=== PATIENT | female | born 1980 | race Caucasian/White ===

== ENCOUNTER 2023-06-10 16:29 | Emergency (ER) | payer OTHER, SELFPAY ==
[2023-06-10 16:30] VITALS: BP 149/55
--- NOTE | 2023-06-10 16:49 | EDRN ---
Anton SORIA in room w/ pt at this time.
--- NOTE | 2023-06-10 16:58 | ED.GENMED ---
History of Present Illness
<Catina Cunningham PA-C - Last Filed: 06/10/23 23:52>
General
Chief Complaint: Back Pain
Source: patient
Exam Limitations: none
Time Seen by Provider: 06/10/23 16:33
Nursing documentation reviewed up to this point in time: agreed with
Travel History
Have you had any contact with someone who has COVID-19?: No
Do you have any symptoms of coronavirus? Fever > 100 degrees, chills, cough, shortness of breath, sore throat, loss of taste or smell, muscle aches, or headache?: No
History of Present Illness
History of Present Illness:
Patient is a 42-year-old female with no significant past medical history presenting for evaluation of acute onset lower back pain. Patient states pain initially began on Tuesday morning and has been worsening. Pain is located in lower back, more
so on the right side with radiation down into the right leg. Pain is constant 10/10 both at rest and with movement. Patient reports feeling generally unwell on Tuesday with a low-grade fever and nausea. Her menstrual period began on Tuesday
morning which is what she initially attributed the lower back pain to. She also endorses lower abdominal pain which she attributes to menstrual cramps. She has been nauseous since pain started on Tuesday with very little appetite. Patient denies
any bowel or bladder incontinence, numbness/tingling in lower extremities. Patient denies any dysuria. Patient does have a somewhat significant history of sciatica type pain, but she describes this pain as much more severe
Patient has tried heating pad and Tylenol with very little improvement.
Patient denies any inciting injury or trauma. Patient does have a history of kidney infections and kidney stones in the past.
Of note�patient did recently stop taking an OCP about 3 months ago due to side effects. She has had her tubes tied many years ago. No history of other abdominal surgeries. No history of IV drug use.
Past History
<Catina Cunningham PA-C - Last Filed: 06/10/23 23:52>
Past History
ED Past Medical History: None
ED Past Surgical History: None
Social History
Tobacco: Non-smoker
Alcohol: None
Phy Exam
<Catina Cunningham PA-C - Last Filed: 06/10/23 23:52>
Physical Exam
Physical Exam:
General: Appears uncomfortable, nontoxic
Vitals: Vital signs stable, afebrile
HEENT: Atraumatic, normocephalic; pupils equal round and reactive to light bilaterally, protecting airway
Neck: appears supple, no meningeal signs, no cervical spine tenderness
CV: Regular rate and rhythm, heart sounds normal, no evidence of cyanosis
Resp: No evidence of respiratory distress, lungs clear bilaterally
Abd: Soft, diffusely tender in the lower abdomen without rebound or guarding, non-distended
Extremities: No deformities, no evidence of cyanosis or edema; DP pulses palpable and equal bilaterally; strength 5 out of 5 in upper and lower extremity
Back: Significant reproducible tenderness to right lumbar paraspinal muscles with associated muscle spasm; no midline spinal tenderness, no rash
Neuro: alert and oriented; grossly intact, sensation fully intact, no focal neurologic deficits
Psych: Normal affect
Skin: Intact, no rashes
Course
<Catina Cunningham PA-C - Last Filed: 06/10/23 23:52>
Orders/Labs/Results
Orders:
Orders
06/10/23 17:27
Ketorolac [Toradol] 15 mg IV NOW STA
Morphine Sulfate 2 mg IV NOW STA
06/10/23 17:28
Test Result ONCE
06/10/23 17:46
Complete Blood Count/With Diff Urgent
Comprehensive Metabolic Panel Urgent
HCG, Serum Qualitative Screen Urgent
06/10/23 17:59
Urinalysis Reflex To Culture Urgent
Date Specimen was Collected: 06/10/23
Time Specimen was Collected: 17:58
Urine Microscopic Reflex Cult Urgent
Urine Culture Urgent
TOM Source: U
Specimen Description:
Date Specimen was Collected: 06/10/23
Time Specimen was Collected: 17:58
06/10/23 19:05
0.9% Sodium Chloride 1000 ml [Nss] 1,000 ml IV BOLUS
06/10/23 19:06
CT Abd/pelvis W Iv Cont Urgent
Comment:
Reason For Exam: Diffuse abdominal pain, lower back pain
06/10/23 20:23
Morphine Sulfate 2 mg IV NOW STA
06/10/23 20:30
Dexamethasone Sod Phosphate [Decadron] 10 mg IV NOW STA
diazePAM [Valium Injection] 2 mg IV NOW STA
Abnormal Lab Results
06/10/23 06/10/23
17:46 17:59
MCH 31.9 H pg
(27.0-31.0)
Urine Ketones Trace A
(Negative)
Ur Occult Blood Reflex 3+ A
(Negative)
Leukocyte Esterase Rfl 1+ A
(Negative)
Urine RBC 3-6 A /HPF
(0-2)
Urine Bacteria (Reflex) Many A
(Negative)
06/10/23 17:46
06/10/23 17:46
Vital Signs
Initial and Last Documented VS:
Initial Vital Signs
Temp Pulse Resp BP Pulse Ox
98.4 F 84 16 149/55 98
06/10/23 16:30 06/10/23 16:30 06/10/23 16:30 06/10/23 16:30 06/10/23 16:30
Last Documented Vital Signs
Temp Pulse Resp BP Pulse Ox
98.4 F 75 16 97/66 100
06/10/23 16:30 06/10/23 18:31 06/10/23 18:31 06/10/23 18:31 06/10/23 18:31
<Jay Hewitt MD - Last Filed: 06/10/23 20:51>
Orders/Labs/Results
Orders:
Orders
06/10/23 17:27
Ketorolac [Toradol] 15 mg IV NOW STA
Morphine Sulfate 2 mg IV NOW STA
06/10/23 17:28
Test Result ONCE
06/10/23 17:46
Complete Blood Count/With Diff Urgent
Comprehensive Metabolic Panel Urgent
HCG, Serum Qualitative Screen Urgent
06/10/23 17:59
Urinalysis Reflex To Culture Urgent
Date Specimen was Collected: 06/10/23
Time Specimen was Collected: 17:58
Urine Microscopic Reflex Cult Urgent
Urine Culture Urgent
TOM Source: U
Specimen Description:
Date Specimen was Collected: 06/10/23
Time Specimen was Collected: 17:58
06/10/23 19:05
0.9% Sodium Chloride 1000 ml [Nss] 1,000 ml IV BOLUS
06/10/23 19:06
CT Abd/pelvis W Iv Cont Urgent
Comment:
Reason For Exam: Diffuse abdominal pain, lower back pain
06/10/23 20:23
Morphine Sulfate 2 mg IV NOW STA
06/10/23 20:30
Dexamethasone Sod Phosphate [Decadron] 10 mg IV NOW STA
diazePAM [Valium Injection] 2 mg IV NOW STA
Abnormal Lab Results
06/10/23 06/10/23
17:46 17:59
MCH 31.9 H pg
(27.0-31.0)
Urine Ketones Trace A
(Negative)
Ur Occult Blood Reflex 3+ A
(Negative)
Leukocyte Esterase Rfl 1+ A
(Negative)
Urine RBC 3-6 A /HPF
(0-2)
Urine Bacteria (Reflex) Many A
(Negative)
06/10/23 17:46
06/10/23 17:46
Vital Signs
Initial and Last Documented VS:
Initial Vital Signs
Temp Pulse Resp BP Pulse Ox
98.4 F 84 16 149/55 98
06/10/23 16:30 06/10/23 16:30 06/10/23 16:30 06/10/23 16:30 06/10/23 16:30
Last Documented Vital Signs
Temp Pulse Resp BP Pulse Ox
98.4 F 75 16 97/66 100
06/10/23 16:30 06/10/23 18:31 06/10/23 18:31 06/10/23 18:31 06/10/23 18:31
<Catina Cunningham PA-C - Last Filed: 06/10/23 23:52>
MDM/Problems Addressed
Differential Diagnosis Includes:
Sciatica, muscle strain/ muscle spasm UTI, kidney stone, pyelonephritis, appendicitis, ovarian cyst, tubo-ovarian abscess, diverticulitis, cholecystitis
MDM/Problems Addressed:
Patient is a 42-year-old female with no significant past medical history presenting for evaluation of severe lower back pain. Pain is been present for the past 3 days, has been constant 10/10 in severity associated with nausea. She did have a
low-grade fever on Tuesday of 100.1. Patient is in significant distress due to pain and unable to complete full physical examination. Will treat pain with 15 mg Toradol, morphine and reassess. Will draw basic labs, urinalysis, check
Pain with very minimal improvement but able to complete physical examination. She does have significant reproducible tenderness in right paraspinal region around L4/L5. No focal neurologic deficits. Strength 5 out of 5 in upper and lower
extremities. She is tender throughout her abdomen, most significant in right lower quadrant. Labs noted. Urinalysis positive for small amount of blood likely attributed affect patient is currently on her menses. Given persistent discomfort�will
check CT abdomen/pelvis. Patient without any focal neurologic deficits, strength and sensation fully intact- not suspicious for cauda equina at this time. Will give 2mg morphine.
CT scan shows findings of constipation and moderate degenerative disc disease at L5/S1. This is likely contributing patient's pain. She still feels very little improvement after morphine. Will give 10 of Decadron and 2 of Valium. Will reassess
Patient is feeling improvement following Valium and Decadron, although still somewhat uncomfortable. She was able to walk to the bathroom. Offered patient admission for pain management. Patient feels comfortable with discharge with close return
precautions. Will discharge with prescription for Medrol Dosepak and Valium and Ortho follow-up. Lengthy discussion with patient regarding warning signs of cauda equina. Patient comfortable with this plan. All questions answered.
Chronic conditions affecting care:
Sciatica
Acute Exacerbation and/or Progression of Chronic Illness:
N/A
<Catina Cunningham PA-C - Last Filed: 06/10/23 23:52>
*Radiology
Radiology exam reviewed: preliminary read by ED provider and radiology read reviewed
*Pulse Oximetry
Patient hypoxic: no
*EKG
Interpreted by ED Provider?: NA
*Plastic Panel Installer Interpretation
Rate: Plastic Panel Installer- N/A
*Critical Care Note
Total Time (30-74mins, 75-104mins- exclusive of procedures): Not Applicable
ED Attending Note
<Catina Cunningham PA-C - Last Filed: 06/10/23 23:52>
-
Portions of this chart may have been created with voice recognition software.� Occasional wrong word or��sound alike� substitutions may have occurred due to the inherent limitations of voice recognition software.
<Jay Hewitt MD - Last Filed: 06/10/23 20:51>
ED Attending Note
Patient seen and examined by attending physician: Yes
ED Attending Note:
Patient with history of chronic pain secondary to sciatica, since childbirth 30 years ago, presents to ED secondary to persistent right lower back pain over the past 3 days. Denies fever or chills. Denies direct trauma. Denies loss of sensation
or weakness. Denies urinary or bowel incontinence. Patient does report pain rating to her groin as well as her upper thigh. Patient has had similar symptoms in the past, but never this severe. Denies recent change in activities.
Physical Exam
General: moderate painful distress, not acutely ill. afebrile.
Head: nc/at. eomi
Neck: supple. no meningeal signs.
Abdomen: normal bowel sounds. not tender.
Back: no midline tenderness. mild focal right lower back tenderness at level of L4-5 with associated muscle spasm.
Neuro: alert and oriented. no focal neurological deficits
Skin: no rash
Psychiatric: well kept. interactive and cooperative
Extremities: no edema. no calf tenderness.
CT report reviewed.
History and exam consistent with likely nerve impingement with associated muscle spasm. Patient will be treated symptomatically and reassess. Patient will benefit from an outpatient orthopedic surgery follow-up, including potential MRI spine as an
outpatient, if symptoms persist. Patient does not have exam findings concerning for cauda equina syndrome at this time.
Discharge Plan
Departure
Patient Disposition: Home (Routine Discharge)
Date of Disposition: 06/10/23
Time of Disposition: 21:32
Patient with high blood pressure during this ER visit?: No
Condition: Good
Covid-19: Not Applicable
Discharge Problem:
Low back pain
Instructions: Low Back Pain (DC), Sciatica (DC)
Prescriptions:
New
methylprednisolone [Medrol (Laci)] 4 mg tablets,dose pack
See Rx Instructions .ROUTE .COMPLEX Qty: 21 0RF
Rx Instructions:
orally per package directions
diazepam 2 mg tablet
2 mg PO Q8H PRN (Reason: muscle spasm) Qty: 7 0RF
No Action
bupropion HCl [Wellbutrin SR] 150 MG tablet sustained-release 12 hr
150 mg PO DAILY
lamotrigine 25 MG tablet, chewable dispersible
25 mg PO DAILY
oxycodone-acetaminophen 5 MG/325 MG tablet
1 tab PO Q6HPRN PRN (Reason: pain) Qty: 7 0RF
Referrals:
Gabriel Floyd MD [Active] - Call in 1-3 days for appt
UNKNOWN - PT NOT,INTERVIEWE [Unknown Provider] -
Activity Restrictions/Additional Instructions:
-Return to the emergency department with any high fevers, numbness/tingling in groin/lower extremities, weakness, bowel/bladder incontinence, intractable pain, chest pain, shortness of breath, worsening current symptoms, or any other concern
-Prescriptions have been sent to your pharmacy. You can take the diazepam every 8 hours as needed for severe pain/muscle spasm. This will cause drowsiness. Do not take prior to driving. You can start the steroid Dosepak tomorrow.
-You should take Motrin twice a day. Apply ice/heat as needed
-Follow-up with orthopedic for further evaluation/management. You may require further imaging and intervention
Interventions
Interventions:
*Risk Screen - Suicide Last Done: 06/10/23 16:30
*General Assessment Last Done: 06/10/23 16:30
*Neglect/Abuse Screening Last Done: 06/10/23 16:30
ED- Fall Risk Assessment Last Done: 06/10/23 18:31
*ED COVID-19 Vaccine History Last Done: 06/10/23 18:31
*Nursing Disposition Last Done: 06/10/23 22:14
ED-Musculoskeletal Assessment Last Done: 06/10/23 18:31
Discharge Date and Time
Discharge Date/Time: 06/10/23 22:14
Print Language: LITHUANIAN
[2023-06-10] MEDS: TORADOL 15 MG IV (17:53)
[2023-06-10 17:54] LABS: % Basophils 0.8 % (0-2); % Eosinophils 3.8 % (0-6); % Immature Granulocytes 0.3 % (0-0.5); % Monocytes 6.5 % (1.7-9.3); % Neutrophils 56.6 % (42.2-75.2); Absolute Basophils 0.1 10^3/uL (0-0.2); Absolute Eosinophils 0.3 10^3/uL (0-0.7); Absolute Lymphocytes 2.5 10^3/uL (1.2-3.4); Absolute Monocytes 0.5 10^3/uL (0.1-0.6); Absolute Neutrophils 4.4 10^3/uL (1.4-6.5); Hemoglobin 14.4 g/dL (12.0-16.0); Mean Corp Hgb Conc. 35.1 g/dL (33.0-37.0); Mean Corpuscular Hgb 31.9 pg (27.0-31.0); Mean Corpuscular Volume 90.9 fL (81.0-99.0); Mean Platelet Volume 9.7 fL (7.4-10.4); Nucleated Red Blood Cells % 0 %; Platelet Count 298 10^3/uL (130-400); Red Blood Cell Count 4.51 10^6/uL (4.20-5.40); Red Cell Dist. Width 12.8 % (11.5-14.5); White Blood Cell Count 7.8 10^3/uL (4.8-10.8)
[2023-06-10] MEDS: MORPHINE SULFATE 2 MG IV ×2 (17:54→20:28)
[2023-06-10 18:04] LABS: HCG, Serum Qualitative Screen Negative
[2023-06-10 18:07] LABS: ALT (SGPT) 14 U/L (0-35); AST (SGOT) 17 U/L (14-36); Albumin 4.8 g/dl (3.5-5.0); Alkaline Phosphatase 93 U/L (38-126); Blood Urea Nitrogen 12 mg/dl (7-17); Calcium 9.9 mg/dl (8.4-10.2); Carbon Dioxide 23 mmol/L (22-30); Chloride 106 mmol/L (98-107); Glucose 95 mg/dl (70-99); Sodium 135 mmol/L (135-145); Total Bilirubin 0.6 mg/dl (0.2-1.3); Total Protein 7.4 g/dl (6.3-8.2); eGFR > 60.00
[2023-06-10 18:11] LABS: Urine Albumin Negative (Neg - Trace); Urine Bilirubin Negative (Negative); Urine Character Clear (Clear); Urine Color Straw; Urine Glucose Negative (Negative); Urine Ketone Trace (Negative); Urine Leukocyte 1+ (Negative); Urine Nitrite Negative (Negative); Urine Occult Blood 3+ (Negative); Urine Urobilinogen Negative (Neg - 1+); Urine pH 6.5 (5.0-9.0)
[2023-06-10 18:25] LABS: Urine Squamous Cell >30 /LPF (Few)
[2023-06-10 18:26] LABS: Urine Bacteria Many (Negative)
[2023-06-10 18:31] VITALS: BP 97/66; BMI 30.5
[2023-06-10] MEDS: NSS 1000 IV (19:28)
[2023-06-10] MEDS: DECADRON 10 MG IV (20:45)
[2023-06-10] MEDS: VALIUM INJECTION 2 MG IV (20:46)
== END 2023-06-10 22:14 | disposition home or self-care (01) ==
LOC: EMR 16:29
PROVIDERS: Physician Assistant; EMERGENCY PHYSICIAN Emergency Medicine; FAMILY PHYSICIAN Nurse Practitioner Family
DX: M54.41 Lumbago with sciatica, right side (principal); M62.838 Other muscle spasm; M79.604 Pain in right leg; K59.00 Constipation, unspecified; R50.9 Fever, unspecified; R11.0 Nausea; R10.30 Lower abdominal pain, unspecified; G89.29 Other chronic pain; M51.37 Other intervertebral disc degeneration, lumbosacral region; Z87.442 Personal history of urinary calculi; Z88.1 Allergy status to other antibiotic agents; Z88.2 Allergy status to sulfonamides
CPT/HCPCS: 99285; 96375 ×3; 96361; 96374; 96376; 74177; 80053; 81003; 81015; 84703; 85025; 87086; Q9967

== ENCOUNTER → 2023-07-12 10:27 | Outpatient (REF) | payer OTHER, SELFPAY | LOC: WDC 10:27 | PROVIDERS: ATTENDING PHYSICIAN Nurse Practitioner Adult Health | DX: N64.4 Mastodynia (principal) | CPT/HCPCS: 76642 ==

== ENCOUNTER → 2023-07-21 19:50 | Outpatient (REF) | payer OTHER, SELFPAY | LOC: WDC 19:50 | PROVIDERS: ATTENDING PHYSICIAN Obstetrics & Gynecology; FAMILY PHYSICIAN Nurse Practitioner Adult Health | DX: N64.4 Mastodynia (principal) | CPT/HCPCS: 77062; 77066 ==

== ENCOUNTER 2024-02-03 15:59 | Emergency (ER) | payer OTHER, SELFPAY ==
[2024-02-03 16:03] VITALS: BP 123/76
[2024-02-03 16:30] LABS: % Basophils 0.9 % (0-2); % Eosinophils 2.1 % (0-6); % Immature Granulocytes 0.2 % (0-0.5); % Neutrophils 56.8 % (42.2-75.2); Absolute Basophils 0.1 10^3/uL (0-0.2); Absolute Eosinophils 0.1 10^3/uL (0-0.7); Absolute Lymphocytes 2.2 10^3/uL (1.2-3.4); Absolute Monocytes 0.5 10^3/uL (0.1-0.6); Absolute Neutrophils 3.7 10^3/uL (1.4-6.5); Hemoglobin 13.3 g/dL (12.0-16.0); Mean Corp Hgb Conc. 34.1 g/dL (33.0-37.0); Mean Corpuscular Hgb 31.4 pg (27.0-31.0); Mean Platelet Volume 10.2 fL (7.4-10.4); Nucleated Red Blood Cells % 0 %; Platelet Count 256 10^3/uL (130-400); Red Blood Cell Count 4.24 10^6/uL (4.20-5.40); Red Cell Dist. Width 12.5 % (11.5-14.5); White Blood Cell Count 6.5 10^3/uL (4.8-10.8)
[2024-02-03 16:37] LABS: HCG, Serum Qualitative Screen Negative
[2024-02-03 16:43] LABS: ALT (SGPT) 12 U/L (0-35); AST (SGOT) 16 U/L (14-36); Albumin 4.4 g/dl (3.5-5.0); Alkaline Phosphatase 69 U/L (38-126); Blood Urea Nitrogen 12 mg/dl (7-17); Calcium 9.2 mg/dl (8.4-10.2); Carbon Dioxide 25 mmol/L (22-30); Chloride 103 mmol/L (98-107); Glucose 94 mg/dl (70-99); Sodium 139 mmol/L (135-145); Total Bilirubin 0.4 mg/dl (0.2-1.3); Total Protein 6.7 g/dl (6.3-8.2); eGFR > 60.00
[2024-02-03 16:48] LABS: Troponin I < 0.012 ng/ml
[2024-02-03 17:47] VITALS: BP 104/83
[2024-02-03 17:49] VITALS: BMI 24.6
[2024-02-03 18:07] VITALS: BP 102/62
[2024-02-03] MEDS: ZOFRAN 4 MG IV (18:31)
[2024-02-03] MEDS: TORADOL 15 MG IV (18:36)
[2024-02-03] MEDS: DILAUDID 0.25 MG IV (18:37)
[2024-02-03 18:44] LABS: Urine Albumin Negative (Neg - Trace); Urine Bilirubin Negative (Negative); Urine Character Clear (Clear); Urine Color Yellow; Urine Glucose Negative (Negative); Urine Ketone Trace (Negative); Urine Leukocyte Negative (Negative); Urine Nitrite Negative (Negative); Urine Occult Blood Negative (Negative); Urine Specific Gravity 1.015 (<1.030); Urine Urobilinogen Negative (Neg - 1+)
[2024-02-03 18:49] LABS: D-Dimer < 0.27 ug/mlFEU (0.00-0.50)
[2024-02-03 18:52] VITALS: BP 116/91
[2024-02-03 18:56] LABS: Lipase 142 U/L (23-300)
[2024-02-03] MEDS: BENADRYL 25 MG IV (18:57)
[2024-02-03 19:00] VITALS: BP 104/73
--- NOTE | 2024-02-03 19:05 | ED.GENMED ---
History of Present Illness
General
Chief Complaint: Back Pain
Source: patient
Exam Limitations: none
Time Seen by Provider: 02/03/24 17:50
Nursing documentation reviewed up to this point in time: agreed with
History of Present Illness
History of Present Illness:
43 y/o F with h/o endometriosis, depression
4 days ago got gradual onset of L sided back pain scapular region
got pretty intense and has been positional worse with breathing, laying back, moving left arm
she has not had recent cough/cold
no fever/chills, truama
she was putting decorations out when it started but doesn't think she hurt herself
then 2 days ago when she urinated she saw small blood clot in the toilet but that was the only time that happened
no urinary sypmtoms, no vaginal bleeding
she isn't sure where the blood came from but it hasn't happened again
she has not had any constpiation, diarrhea, vomiting.
pt has tried motrin without relief
no recent long travel
no previous dvt/pe
Past History
Past History
ED Past Medical History: None
ED Past Surgical History: None
Social History
Tobacco: Non-smoker
Alcohol: None
Review of Systems
Review of Systems
Allergies reviewed?: Yes
All Other Systems: Not applicable
Phy Exam
Physical Exam
Physical Exam:
GENERAL: Alert , slow to move/change positions but ok at rest, no distress
HEAD: NCAT
NECK: no midline tenderness, active ROM intact, no paraspinal muscle tenderness;
CARDIAC: Regular rate and rhythm, no edema
LUNGS: splinting a little, pain with deep breathing, no cough, no acute respiratory distress, no wheezes/rales/rhonchi
ABDOMEN: Soft, without focal tenderness, no r/g, no cvat, normal bowel sounds, nondistended
no rash
nontender
NEUROLOGICAL: Alert and oriented, no focal neuro deficits, CN intact, 5/5 strength, sensation intact, ambulation slight limp left leg
SKIN: Warm and dry, no rash
MUSCULOSKELETAL: No edema, well perfused.
Back: left scapular region tender, painwith shoulder movement
no rash
no midline tendnress
no cva tenderness
PSYCH: Normal and appropriate interaction.
Course
Orders/Labs/Results
Orders:
Orders
02/03/24 16:08
Electrocardiogram (*1) Urgent
Reason for Study: Shortness of Breath
EKG- Treatment ONCE
Test Result ONCE
CR Chest - 2 Views Urgent
Comment:
Reason For Exam: L upper pain w breathing
02/03/24 16:17
Complete Blood Count/With Diff Urgent
Comprehensive Metabolic Panel Urgent
HCG, Serum Qualitative Screen Urgent
Lipase Urgent
Comment: ADD ON
Troponin I Urgent
02/03/24 18:18
HYDROmorphone [Dilaudid] 0.25 mg IV NOW STA
Ketorolac [Toradol] 15 mg IV NOW STA
Ondansetron Injectable [Zofran] 4 mg IV NOW STA
02/03/24 18:19
Add On- LAB Urgent
Tests Added?: LIPASE
02/03/24 18:22
D-Dimer Urgent
Urinalysis Reflex To Culture Urgent
Date Specimen was Collected: 02/03/24
Time Specimen was Collected: 18:21
02/03/24 18:54
Diphenhydramine [Benadryl] 25 mg IV NOW STA
Abnormal Lab Results
02/03/24 02/03/24
16:17 18:22
MCH 31.4 H pg
(27.0-31.0)
Urine Ketones Trace A
(Negative)
02/03/24 16:17
02/03/24 16:17
Vital Signs
Initial and Last Documented VS:
Initial Vital Signs
Temp Pulse Resp BP Pulse Ox
36.8 C 95 15 123/76 100
02/03/24 16:03 02/03/24 16:03 02/03/24 16:03 02/03/24 16:03 02/03/24 16:03
Last Documented Vital Signs
Temp Pulse Resp BP Pulse Ox
36.8 C 79 11 102/73 99
02/03/24 16:03 02/03/24 20:59 02/03/24 20:59 02/03/24 21:03 02/03/24 20:59
MDM/Problems Addressed
Differential Diagnosis Includes:
PE, pleurisy, msk pain, less likely kidney stone, pancreatitis, pericarditis
MDM/Problems Addressed:
43 y/o F
atraumatic L scapular pain x 4 days
worse with deep breathing
no injury
no illneess
uncomfortable on exam but afebrile, no hypoxia
no rash
tender scapular region
pain with shoulder movement and breathing
ekg normal
trop neg
wbc normal
d dimer neg
urine neg for hematuria
lytes normal
cxr clear
pain improved to 4/10 after iv dialudid and toraodl
pt has had these meds before but briefly felt some facial itchinga nd lip swelling but sh ehad no distress, no other signs of anaphylaxis
suspect histamine resonse to opiates
resovled wtih benadryl
d/c home
*Critical Care Note
Total Time (30-74mins, 75-104mins- exclusive of procedures): Not Applicable
ED Attending Note
-
Portions of this chart may have been created with voice recognition software.� Occasional wrong word or��sound alike� substitutions may have occurred due to the inherent limitations of voice recognition software.
Discharge Plan
Departure
Patient Disposition: Home (Routine Discharge)
Date of Disposition: 02/03/24
Time of Disposition: 20:36
Patient with high blood pressure during this ER visit?: No
Condition: Fair
Covid-19: Not Applicable
Discharge Problem:
Back pain, Costochondritis
Instructions: Upper Back Pain (DC)
Prescriptions:
New
hydrocodone-acetaminophen 5-325 mg tablet
1 tab PO Q8H PRN (Reason: Pain) Qty: 12 0RF
naproxen 500 mg tablet
500 mg PO BID PRN (Reason: Pain) Qty: 20 0RF
No Action
bupropion HCl [Wellbutrin SR] 150 MG tablet sustained-release 12 hr
150 mg PO DAILY
lamotrigine 25 MG tablet, chewable dispersible
25 mg PO DAILY
oxycodone-acetaminophen 5 MG/325 MG tablet
1 tab PO Q6HPRN PRN (Reason: pain) Qty: 7 0RF
methylprednisolone [Medrol (Laci)] 4 mg tablets,dose pack
See Rx Instructions .ROUTE .COMPLEX Qty: 21 0RF
Rx Instructions:
orally per package directions
diazepam 2 mg tablet
2 mg PO Q8H PRN (Reason: muscle spasm) Qty: 7 0RF
Referrals:
Tiffani Aguillon CRNP [Family Provider] -
Activity Restrictions/Additional Instructions:
YOUR BACK PAIN IS LIKELY MSUCULAR OR IT COULD BE INFLAMMATION ALONG YOUR LUNG OR IN THE NERVES BETWEEN YOUR RIBS
TAKE ALEVE TWICE A DAY FOR 3-5 DAYS WITH FOOD FOR INFLAMMATION
FOR MORE SEVER EPAIN YOU CAN TRY VICODIN 1 TAB EVERY 6 HOURS NEEDED
HEAT OFF AND ON
RETURN FOR SEVERE PAIN, FEVER, RASH, TROUBLE BREATHING ETC.
Interventions
Interventions:
*Risk Screen - Suicide Last Done: 02/03/24 17:49
*General Assessment Last Done: 02/03/24 17:49
*Neglect/Abuse Screening Last Done: 02/03/24 17:49
ED- Fall Risk Assessment Last Done: 02/03/24 17:49
*ED COVID-19 Vaccine History Last Done: 02/03/24 17:49
*Nursing Disposition Last Done: 02/03/24 21:18
ED-Musculoskeletal Assessment Last Done: 02/03/24 17:49
Discharge Date and Time
Discharge Date/Time: 02/03/24 21:20
Print Language: MALAY
[2024-02-03 21:03] VITALS: BP 102/73
== END 2024-02-03 21:20 | disposition home or self-care (01) ==
LOC: EMR 15:59
PROVIDERS: Physician Assistant; EMERGENCY PHYSICIAN Student in an Organized Health Care Education/Training Program; FAMILY PHYSICIAN Nurse Practitioner Family
DX: M54.9 Dorsalgia, unspecified (principal); M94.0 Chondrocostal junction syndrome [Tietze]; N80.9 Endometriosis, unspecified; F32.A Depression, unspecified
CPT/HCPCS: 99283; 96374; 96375; 71046; 80053; 81003; 83690; 84484; 84703; 85025; 85379; 93005

== ENCOUNTER 2024-04-05 11:42 | Emergency (ER) | payer OTHER, SELFPAY ==
[2024-04-05 11:54] VITALS: BP 98/75
[2024-04-05 12:21] LABS: % Basophils 0.6 % (0-2); % Eosinophils 1.9 % (0-6); % Immature Granulocytes 0.2 % (0-0.5); % Monocytes 5.5 % (1.7-9.3); % Neutrophils 71.8 % (42.2-75.2); Absolute Basophils 0.1 10^3/uL (0-0.2); Absolute Eosinophils 0.2 10^3/uL (0-0.7); Absolute Lymphocytes 1.7 10^3/uL (1.2-3.4); Absolute Monocytes 0.5 10^3/uL (0.1-0.6); Hemoglobin 14.1 g/dL (12.0-16.0); Mean Corp Hgb Conc. 35.3 g/dL (33.0-37.0); Mean Corpuscular Hgb 31.8 pg (27.0-31.0); Mean Corpuscular Volume 90.3 fL (81.0-99.0); Mean Platelet Volume 10.2 fL (7.4-10.4); Nucleated Red Blood Cells % 0 %; Platelet Count 264 10^3/uL (130-400); Red Blood Cell Count 4.43 10^6/uL (4.20-5.40); Red Cell Dist. Width 12.1 % (11.5-14.5); White Blood Cell Count 8.3 10^3/uL (4.8-10.8)
[2024-04-05 12:39] LABS: HCG, Serum Qualitative Screen Negative
[2024-04-05 12:44] LABS: ALT (SGPT) 12 U/L (0-35); AST (SGOT) 17 U/L (14-36); Albumin 4.8 g/dl (3.5-5.0); Alkaline Phosphatase 71 U/L (38-126); Blood Urea Nitrogen 15 mg/dl (7-17); Calcium 9.5 mg/dl (8.4-10.2); Carbon Dioxide 28 mmol/L (22-30); Chloride 100 mmol/L (98-107); Glucose 105 mg/dl (70-99); Sodium 135 mmol/L (135-145); Total Bilirubin 0.7 mg/dl (0.2-1.3); Total Protein 6.8 g/dl (6.3-8.2); eGFR > 60.00
[2024-04-05 12:58] LABS: Lipase 158 U/L (23-300)
--- NOTE | 2024-04-05 13:38 | ED.GENMED ---
History of Present Illness
<DO Brittnee Turner Last Filed: 04/05/24 13:42>
General
Chief Complaint: Abdominal Pain
Source: patient
Time Seen by Provider: 04/05/24 13:23
History of Present Illness
History of Present Illness:
43-year-old female presents to the emergency room complaining of significant abdominal pain. Pain started suddenly at 8 this morning. The pain certainly has not improved and seems to be getting worse actually. Nothing seems to make it better or
worse. She has nausea but has not vomited. She denies any dysuria, frequency or urgency. The pain radiates to her right scapular region. No diarrhea or constipation. Patient denies any previous abdominal surgery.
Past History
<DO Brittnee Turner Last Filed: 04/05/24 13:42>
Past History
ED Past Medical History: None
ED Past Surgical History: None
Social History
Tobacco: Non-smoker
Alcohol: None
Phy Exam
<Edward Singh DO - Last Filed: 04/05/24 13:42>
Physical Exam
Physical Exam:
General: Awake, Alert, Oriented X3. Appears uncomfortable due to abdominal pain
Vitals: unremarkable
Head: Atraumatic
Eyes: Pupils equal, EOMI
Throat: Airway intact, no exudates
Neck: Trachea midline
Lungs: Clear and equal b/l
Heart: Regular rate, no murmurs
Abd: Soft, significant tenderness to palpation diffusely, positive rebound tenderness, No pulsatile mass
Back: Positive CVA tenderness bilaterally but worse on the left
Neuro: Nonfocal
Skin: Warm, dry, no rash
Extremities: pulses equal b/l, no edema
Course
<DO Brittnee Turner Last Filed: 04/05/24 13:42>
Orders/Labs/Results
Orders:
Orders
04/05/24 11:57
Test Result ONCE
04/05/24 12:01
Comprehensive Metabolic Panel Urgent
HCG, Serum Qualitative Screen Urgent
Comment: Notify provider if positive test present
Lipase Urgent
04/05/24 12:02
Complete Blood Count/With Diff Urgent
04/05/24 13:36
HYDROmorphone [Dilaudid] 1 mg IV NOW STA
04/05/24 13:37
CT Abd/pelvis W Iv Cont Urgent
Comment:
Reason For Exam: sudden onset diffuse abd pain
04/05/24 13:38
0.9% Sodium Chloride 1000 ml [Nss] 1,000 ml IV BOLUS
04/05/24 14:12
Diphenhydramine [Benadryl] 25 mg PO NOW STA
04/05/24 15:35
Ondansetron Injectable [Zofran] 4 mg .ROUTE .STK-MED ONE
04/05/24 15:36
Ondansetron Injectable [Zofran] 4 mg IV NOW STA
04/05/24 16:22
Ketorolac [Toradol] 15 mg IV NOW STA
US Pelvis Transvaginal Only Urgent
Reason For Exam: pelvic/abd pain eval for torsion
04/05/24 20:12
Oxycodone [Roxicodone] 5 mg PO NOW STA
Abnormal Lab Results
04/05/24 04/05/24
12:01 12:02
MCH 31.8 H pg
(27.0-31.0)
Lymphocytes % 20.0 L %
(20.5-51.1)
Glucose 105 H mg/dl
(70-99)
04/05/24 12:02
04/05/24 12:01
Vital Signs
Initial and Last Documented VS:
Initial Vital Signs
Temp Pulse Resp BP Pulse Ox
98.7 F 100 16 98/75 98
04/05/24 11:54 04/05/24 11:54 04/05/24 11:54 04/05/24 11:54 04/05/24 11:54
Last Documented Vital Signs
Temp Pulse Resp BP Pulse Ox
98.7 F 89 18 111/82 99
04/05/24 11:54 04/05/24 16:45 04/05/24 16:45 04/05/24 16:45 04/05/24 16:45
<Don Morrow, DO - Last Filed: 04/05/24 20:16>
Orders/Labs/Results
Orders:
Orders
04/05/24 11:57
Test Result ONCE
04/05/24 12:01
Comprehensive Metabolic Panel Urgent
HCG, Serum Qualitative Screen Urgent
Comment: Notify provider if positive test present
Lipase Urgent
04/05/24 12:02
Complete Blood Count/With Diff Urgent
04/05/24 13:36
HYDROmorphone [Dilaudid] 1 mg IV NOW STA
04/05/24 13:37
CT Abd/pelvis W Iv Cont Urgent
Comment:
Reason For Exam: sudden onset diffuse abd pain
04/05/24 13:38
0.9% Sodium Chloride 1000 ml [Nss] 1,000 ml IV BOLUS
04/05/24 14:12
Diphenhydramine [Benadryl] 25 mg PO NOW STA
04/05/24 15:35
Ondansetron Injectable [Zofran] 4 mg .ROUTE .STK-MED ONE
04/05/24 15:36
Ondansetron Injectable [Zofran] 4 mg IV NOW STA
04/05/24 16:22
Ketorolac [Toradol] 15 mg IV NOW STA
US Pelvis Transvaginal Only Urgent
Reason For Exam: pelvic/abd pain eval for torsion
04/05/24 20:12
Oxycodone [Roxicodone] 5 mg PO NOW STA
Abnormal Lab Results
04/05/24 04/05/24
12:01 12:02
MCH 31.8 H pg
(27.0-31.0)
Lymphocytes % 20.0 L %
(20.5-51.1)
Glucose 105 H mg/dl
(70-99)
04/05/24 12:02
04/05/24 12:01
Vital Signs
Initial and Last Documented VS:
Initial Vital Signs
Temp Pulse Resp BP Pulse Ox
98.7 F 100 16 98/75 98
04/05/24 11:54 04/05/24 11:54 04/05/24 11:54 04/05/24 11:54 04/05/24 11:54
Last Documented Vital Signs
Temp Pulse Resp BP Pulse Ox
98.7 F 89 18 111/82 99
04/05/24 11:54 04/05/24 16:45 04/05/24 16:45 04/05/24 16:45 04/05/24 16:45
<Don Morrow, DO - Last Filed: 04/05/24 20:16>
*Critical Care Note
Total Time (30-74mins, 75-104mins- exclusive of procedures): Not Applicable
<Don Morrow, DO - Last Filed: 04/05/24 20:16>
Update Note
Update Note:
8:12 PM care of patient was transitioned pending pelvic ultrasound. Patient came to the emergency department with significant abdominal pain. Her CT abdomen/pelvis was negative but ultrasound was performed to rule out any concern for ovarian
torsion given her discomfort. Ultrasound shows possible uterine cysts. No evidence of torsion. Patient believes this could be recurrent endometriosis. We discussed follow-up with her PMP and discussed strict return precautions. Patient and
feel comfortable going home
ED Attending Note
<Edward Singh, - Last Filed: 04/05/24 13:42>
-
Portions of this chart may have been created with voice recognition software.� Occasional wrong word or��sound alike� substitutions may have occurred due to the inherent limitations of voice recognition software.
Discharge Plan
Departure
Patient Disposition: Home (Routine Discharge)
Date of Disposition: 04/05/24
Time of Disposition: 20:13
Patient with high blood pressure during this ER visit?: No
Discharge Problem:
Abdominal pain
Instructions: Abdominal Pain
Prescriptions:
New
ondansetron 4 mg Tablet,Disintegrating
4 mg PO BIDPRN PRN (Reason: nausea/vomiting) Qty: 10 0RF
oxycodone 5 mg tablet
5 mg PO Q8H PRN (Reason: Pain) Qty: 10 0RF
No Action
bupropion HCl [Wellbutrin SR] 150 MG tablet sustained-release 12 hr
150 mg PO DAILY
lamotrigine 25 MG tablet, chewable dispersible
25 mg PO DAILY
oxycodone-acetaminophen 5 MG/325 MG tablet
1 tab PO Q6HPRN PRN (Reason: pain) Qty: 7 0RF
methylprednisolone [Medrol (Laci)] 4 mg tablets,dose pack
See Rx Instructions .ROUTE .COMPLEX Qty: 21 0RF
Rx Instructions:
orally per package directions
diazepam 2 mg tablet
2 mg PO Q8H PRN (Reason: muscle spasm) Qty: 7 0RF
hydrocodone-acetaminophen 5-325 mg tablet
1 tab PO Q8H PRN (Reason: Pain) Qty: 12 0RF
naproxen 500 mg tablet
500 mg PO BID PRN (Reason: Pain) Qty: 20 0RF
Referrals:
Tiffani Aguillon CRNP [Family Provider] -
Activity Restrictions/Additional Instructions:
Please return for any worsening symptoms.
You may return at any time if you have further concerns.
Please follow up with your doctor at the first available appointment, preferably this week.
Please follow-up with your director of design.
You were given a prescription for narcotics. If you require this pain medicine, please take a daily [id number] stool softener to avoid constipation.
Thank you for choosing [facility].
Interventions
Interventions:
*Risk Screen - Suicide Last Done: 04/05/24 11:54
*General Assessment Last Done: 04/05/24 11:54
*Neglect/Abuse Screening Last Done: 04/05/24 11:54
ED- Fall Risk Assessment Last Done: 04/05/24 13:25
*ED COVID-19 Vaccine History Last Done: 04/05/24 11:54
LG-Dknfwt-Exapwglmhl Assessment Last Done: 04/05/24 13:25
Discharge Date and Time
Print Language: SPANISH
[2024-04-05] MEDS: DILAUDID 1 MG IV (13:49)
[2024-04-05] MEDS: NSS 1000 IV (13:50)
[2024-04-05] MEDS: BENADRYL 25 MG PO (14:26)
[2024-04-05] MEDS: ZOFRAN 4 MG IV (15:36)
[2024-04-05 15:41] VITALS: BP 108/80
[2024-04-05] MEDS: TORADOL 15 MG IV (16:38)
[2024-04-05 16:45] VITALS: BP 111/82
[2024-04-05 20:10] VITALS: BP 116/83
[2024-04-05] MEDS: ROXICODONE 5 MG PO (20:39)
== END 2024-04-05 20:47 | disposition home or self-care (01) ==
LOC: EMR 11:42
PROVIDERS: EMERGENCY PHYSICIAN Emergency Medicine; FAMILY PHYSICIAN Nurse Practitioner Family
DX: R10.9 Unspecified abdominal pain (principal); R11.0 Nausea
CPT/HCPCS: 96374; 96375; 96361; 99284; 74177; 76830; 80053; 83690; 84703; 85025; Q9967

== ENCOUNTER → 2024-04-26 10:34 | Outpatient (REF) | payer OTHER, SELFPAY | LOC: DHSLP 10:34 | PROVIDERS: ATTENDING PHYSICIAN Internal Medicine Critical Care Medicine; FAMILY PHYSICIAN Nurse Practitioner Adult Health | DX: G47.30 Sleep apnea, unspecified (principal); R06.83 Snoring | CPT/HCPCS: 95800 ==

== ENCOUNTER → 2024-11-09 15:02 | Outpatient (REF) | payer OTHER, SELFPAY | LOC: CLAB 15:02 | PROVIDERS: ATTENDING PHYSICIAN Obstetrics & Gynecology Gynecology | DX: N93.9 Abnormal uterine and vaginal bleeding, unspecified (principal) | CPT/HCPCS: 88305 ==

== ENCOUNTER 2024-11-11 22:19 | Emergency (ER) | payer OTHER, SELFPAY ==
[2024-11-11 22:29] VITALS: BP 123/86
[2024-11-11 23:17] VITALS: BMI 22.9
--- NOTE | 2024-11-11 23:35 | ED.GENMED ---
History of Present Illness
General
Chief Complaint: Skin Problem
Source: patient
Exam Limitations: none
Time Seen by Provider: 11/11/24 22:51
Nursing documentation reviewed up to this point in time: agreed with
History of Present Illness
History of Present Illness:
44-year-old female past medical history of endometriosis recent D&C 2 days ago presented to the emergency department with left forearm discomfort as well as redness and swelling worsening over the past 2 days since the procedure she had an IV to the
left breast at the time. Does not history of thrombophlebitis in the past. Denies any chest pain or shortness of breath. No history of blood clots or estrogen product usage no recent immobilization.
Past History
Past History
ED Past Medical History: None
ED Past Surgical History: None
Social History
Tobacco: Non-smoker
Alcohol: None
Review of Systems
Review of Systems
Allergies reviewed?: Yes
All Other Systems: ROS reviewed and negative except as documented in HPI and ROS
Phy Exam
Physical Exam
Physical Exam:
GENERAL: Alert , in no apparent distress
EYE: pupils equal and reactive
NECK: Supple, no significant adenopathy.
ENT: o/p clr, mmm.
CARDIAC: Regular rate and rhythm .
LUNGS: Clear breath sounds bilaterally, no acute respiratory distress, no wheezes/rales/rhonchi
ABDOMEN: Soft, without focal tenderness, no r/g, no cvat
NEUROLOGICAL: Alert and oriented, no focal neuro deficits
SKIN: Vague redness and swelling to the left wrist extending up the forearm. Normal distal pulses
MUSCULOSKELETAL: No edema, well perfused.
PSYCH: Normal and appropriate interaction.
Course
Orders/Labs/Results
Orders:
Orders
11/11/24 23:06
Venous Doppler Upr Ext Left [US Periph Venous UPPER Ext LT] Urgent
Comment:
Reason For Exam: arm swelling, IV to wrist 2 days ago
Vital Signs
Initial and Last Documented VS:
Initial Vital Signs
Temp Pulse Resp BP Pulse Ox
98.8 F 89 17 123/86 99
11/11/24 22:29 11/11/24 22:29 11/11/24 22:29 11/11/24 22:29 11/11/24 22:29
Last Documented Vital Signs
Temp Pulse Resp BP Pulse Ox
98.8 F 83 16 106/76 99
11/11/24 22:29 11/12/24 00:46 11/12/24 00:46 11/12/24 00:46 11/12/24 00:46
MDM/Problems Addressed
MDM/Problems Addressed:
44-year-old female presenting to the emergency department today with concerns of left wrist discomfort after having an IV 2 days ago for a D&C. Denies additional symptoms otherwise no chest pain or shortness of breath. Patient does have some vague
swelling to the area. Ultrasound was ordered for further assessment. Ultrasound without evidence of significant clot. No evidence of any emergent pathology at this time does not appear to be consistent with cellulitis. Stable for close
outpatient follow-up. Return precautions given.
*Pulse Oximetry
SaO2: 99
Oxygen Mode of Delivery: Room air
Patient hypoxic: no (99)
*Critical Care Note
Total Time (30-74mins, 75-104mins- exclusive of procedures): Not Applicable
ED Attending Note
-
Portions of this chart may have been created with voice recognition software.� Occasional wrong word or��sound alike� substitutions may have occurred due to the inherent limitations of voice recognition software.
Discharge Plan
Departure
Patient Disposition: Home (Routine Discharge)
Date of Disposition: 11/12/24
Time of Disposition: 00:32
Patient with high blood pressure during this ER visit?: No
Condition: Good
Covid-19: Not Applicable
Discharge Problem:
Acute wrist pain
Prescriptions:
No Action
bupropion HCl [Wellbutrin SR] 150 MG tablet sustained-release 12 hr
150 mg PO DAILY
lamotrigine 25 MG tablet, chewable dispersible
25 mg PO DAILY
oxycodone-acetaminophen 5 MG/325 MG tablet
1 tab PO Q6HPRN PRN (Reason: pain) Qty: 7 0RF
methylprednisolone [Medrol (Laci)] 4 mg tablets,dose pack
See Rx Instructions .ROUTE .COMPLEX Qty: 21 0RF
Rx Instructions:
orally per package directions
diazepam 2 mg tablet
2 mg PO Q8H PRN (Reason: muscle spasm) Qty: 7 0RF
hydrocodone-acetaminophen 5-325 mg tablet
1 tab PO Q8H PRN (Reason: Pain) Qty: 12 0RF
naproxen 500 mg tablet
500 mg PO BID PRN (Reason: Pain) Qty: 20 0RF
ondansetron 4 mg Tablet,Disintegrating
4 mg PO BIDPRN PRN (Reason: nausea/vomiting) Qty: 10 0RF
oxycodone 5 mg tablet
5 mg PO Q8H PRN (Reason: Pain) Qty: 10 0RF
Referrals:
Marleni Jennings CRNP [Family Provider, Internal Medicine]
Activity Restrictions/Additional Instructions:
You came to the emergency department today with concerns of wrist discomfort after recent IV insertion. Please use warm compresses and aspirin over the next few days. Return for any worsening, new or concerning symptoms.
Interventions
Interventions:
*Risk Screen - Suicide Last Done: 11/11/24 22:31
*General Assessment Last Done: 11/11/24 22:31
*Neglect/Abuse Screening Last Done: 11/11/24 22:31
*ED- Fall Risk Assessment Last Done: 11/11/24 23:17
*ED COVID-19 Vaccine History Last Done: 11/11/24 22:31
*Nursing Disposition Last Done: 11/12/24 00:48
ED-Skin Assessment Last Done: 11/11/24 23:17
Discharge Date and Time
Discharge Date/Time: 11/12/24 00:50
Print Language: FRENCH
[2024-11-12 00:46] VITALS: BP 106/76
== END 2024-11-12 00:50 | disposition home or self-care (01) ==
LOC: EMR 22:19
PROVIDERS: EMERGENCY PHYSICIAN Emergency Medicine; FAMILY PHYSICIAN Nurse Practitioner Adult Health
DX: M25.532 Pain in left wrist (principal)
CPT/HCPCS: 99284; 93971

== ENCOUNTER → 2025-01-24 09:39 | Outpatient (REF) | payer OTHER, SELFPAY | LOC: PAVMRI 09:39 | PROVIDERS: ATTENDING PHYSICIAN Obstetrics & Gynecology Gynecology; FAMILY PHYSICIAN Nurse Practitioner Adult Health | DX: N80.03 Adenomyosis of the uterus (principal) | CPT/HCPCS: 72197; A9575 ==